=== PATIENT | female | born 1955 | race Caucasian/White ===

== ENCOUNTER → 2017-01-12 | Outpatient (CLI) | payer BC, OTHER | LOC: LAB 13:41 | DX: R42 Dizziness and giddiness (principal) ==

== ENCOUNTER → 2018-03-29 | Outpatient (CLI) | payer BC | LOC: RAD 10:55 | DX: M18.12 Unilateral primary osteoarthritis of first carpometacarpal joint, left hand (principal) ==

== ENCOUNTER 2024-01-20 08:00 | Outpatient (RCR) | payer MEDICARE, BC | END 2024-02-19 | LOC: PT | DX: H81.12 Benign paroxysmal vertigo, left ear (principal) ==